=== PATIENT | female | born 1950 | race Caucasian/White ===

== ENCOUNTER 2024-07-16 13:56 | Outpatient (CLI) | payer MEDICARE | END 2024-07-16 13:57 | disposition home or self-care (01) | LOC: CSHMRI 13:56 | PROVIDERS: ATTEND Nurse Practitioner Family | DX: M47.26 Other spondylosis with radiculopathy, lumbar region (principal); M48.061 Spinal stenosis, lumbar region without neurogenic claudication | CPT/HCPCS: 72148 ==